=== PATIENT | male | born 1990 | race Caucasian/White ===

== ENCOUNTER 2019-05-13 12:21 | Emergency (ER) | payer OTHER ==
--- NOTE | 2019-05-13 12:49 | PDOC ---
Rapid Medical Evaluation Chief Complaint: Ear Problem Time Seen by Provider: 05/13/19 12:48 Medical Evaluation: Allergies Allergy/AdvReac Type Severity Reaction Status Date / Time No Known Allergies Allergy Verified 05/13/19 12:48 05/13/19 12:48 I have performed a brief in-person evaluation of this patient. The patient presents with a chief complaint of: ear pain, bleeding Pertinent physical exam findings:stable and in NAD, non-focal I have ordered the following: n/a The patient will proceed to the ED for further evaluation.
[2019-05-13 12:51] VITALS: BP 123/77; PULSE 80; TEMP 98.2; BMI 29.6
--- NOTE | 2019-05-13 13:21 | PDOC ---
History of Present Illness - General Chief Complaint: Ear Problem Stated Complaint: LT EAR PAIN Time Seen by Provider: 05/13/19 12:48 History Source: Patient Exam Limitations: No Limitations - History of Present Illness Initial Comments: 05/13/19 13:26 28y M no mphx presents with L ear pain/fulness for several days. He stuck a qtip in it to try to clean it, his stuck a harika pin into his ear attempting to clear it however it caused pain and bleeding and they came to [facility] for evaluation. The tp denies any fever/chills, but notes that he has had decrased hearing from the L ear that got worse after he used the Q tip. he also notes some deminished hearing in the R ear. Hx of obstructed cerumen requring removal when he was 15 but has been fine since. denies any headache, vision changes, neck pain, sore throat ROS: Genearl: no distress, no fever/chills ENT: ear pain/fullness, bleeding from L ear Abd: denies n/v Neuro: +Deminshed hearing b/l, Physical exam: GENERAL: The patient is awake, alert, and fully oriented, Nontoxic - in no acute distress. HEAD: Normocephalic, atraumatic. EYES: extraocular movements intact, sclera anicteric, conjunctiva clear. ENT: Impacted cerumen b/l, small external canal abrasion on L ear with dried blood. TM not visible. NECK: Normal range of motion, supple Cerumen was disimpacted successfully with irrigated with warm water bilaterally abrasion was anesthetized with topical lidocain Will have patient follow up with ENT Past History - Past Medical History Allergies/Adverse Reactions: Allergies Allergy/AdvReac Type Severity Reaction Status Date / Time No Known Allergies Allergy Verified 05/13/19 12:48 Home Medications: Ambulatory Orders Albuterol 0.083% Nebulizer Laury [Ventolin 0.083% Nebulizer Soln -] 1 amp NEB PRN 05/13/19 - Suicide/Smoking/Psychosocial Hx Smoking History: Never smoked Have you smoked in the past 12 months: No Information on smoking cessation initiated: No Hx Alcohol Use: No Drug/Substance Use Hx: No *Physical Exam - Vital Signs Last Vital Signs Temp Pulse Resp BP Pulse Ox 98.2 F 80 16 123/77 98 05/13/19 12:48 05/13/19 12:48 05/13/19 12:48 05/13/19 12:48 05/13/19 12:48 Procedures - Consent Consent obtained: Verbal - Additional Procedures Progress: 05/13/19 14:03 Procedure: bilateral cerumen disempaction Pts L ear abrasion anesthesized with topical lidocaine approx 80cc of warm water was irrigated/agiated into L ear canal with complete removal of cerumen upon reexamination. TM visualized and intact without erythema. approx 100 cc of warm water was irrigated/agiated into R ear canal with complete removal of cerumen upon reexamination. TM visualized and intact without erythema No compliations, pt tolerated procedure well with impvovement of his hearing. *DC/Admit/Observation/Transfer Diagnosis at time of Disposition: Bilateral hearing loss due to cerumen impaction Ear canal abrasion Qualifiers: Encounter type: initial encounter Laterality: left Qualified Code(s): S00.412A - Abrasion of left ear, initial encounter - Discharge Dispostion Disposition: HOME Condition at time of disposition: Improved Decision to Admit order: No - Referrals - Patient Instructions Printed Discharge Instructions: Cerumen Impaction Additional Instructions: Your ear wax has been removed. IF you have any further symtoms follow up with your primary care doctor or ENT doctor. Print Language: PARAGUAYAN - Post Discharge Activity
== END 2019-05-13 14:19 | disposition home or self-care (01) ==
LOC: JERFT 12:21
PROC: 3E1B78Z Irrigation of Ear using Irrigating Substance, Via Natural or Artificial Opening (ICD-10-PCS; principal; 2019-05-13)
PROC: 3E1B78Z Irrigation of Ear using Irrigating Substance, Via Natural or Artificial Opening (ICD-10-PCS; 2019-05-13)
DX: H61.23 Impacted cerumen, bilateral (principal); S00.412A Abrasion of left ear, initial encounter; S00.411A Abrasion of right ear, initial encounter; W26.8XXA Contact with other sharp object(s), not elsewhere classified, initial encounter; Y93.E8 Activity, other personal hygiene; Y92.038 Other place in apartment as the place of occurrence of the external cause; Y99.8 Other external cause status
CPT/HCPCS: 69209-50; 99281-25